=== PATIENT | male | born 1970 | race Caucasian/White ===

== ENCOUNTER 2017-08-06 20:23 | Emergency (ER) | payer OTHER ==
[2017-08-06 20:36] VITALS: BP 155/96
[2017-08-06] MEDS ORDERED: predniSONE 20 MG TABLET PO STA (20:50)
[2017-08-06] MEDS ORDERED: ACYCLOVIR 200 MG CAPSULE PO STA (20:50)
--- NOTE | 2017-08-06 20:53 | ED Physician Documentation ---
History of Present Illness - Stated complaint Stated Complaint: POSS SHINGLES - Chief complaint Chief Complaint: General - History obtained from History obtained from: Patient - History of Present Illness Timing: Other (He had left-sided chest pain a couple of days ago, it was a burning sensation. Over the last 24 hours has developed a rash there and on the back and under the armpit on the left.) Review of Systems Constitutional: denies: Fever, Chills, Myalgias, Fatigue Cardiac: reports: Chest pain / pressure. denies: Palpitations Respiratory: denies: Dyspnea, Cough PD PAST MEDICAL HISTORY - Past Medical History Past Medical History: Yes Respiratory: Sleep apnea GI: GERD - Past Surgical History Past Surgical History: Yes General: Appendectomy, Other Ortho: Knee replacement - Present Medications Home Medications: Ambulatory Orders Medication Instructions Recorded Confirmed Acyclovir 800 mg PO 5XD 10 Days tablet 08/06/17 Esomeprazole Magnesium [Nexium 40 mg PO DAILY PM 08/06/17 08/06/17 24Hr] predniSONE [Deltasone] 20 mg PO [id number] #21 tab 08/06/17 - Allergies Allergies/Adverse Reactions: Allergies Allergy/AdvReac Type Severity Reaction Status Date / Time Phenothiazines Allergy Severe Anaphylaxis Verified 08/06/17 20:35 - Social History Does the pt smoke?: Yes Smoking Status: Current every day smoker Does the pt drink ETOH?: Yes Does the pt have substance abuse?: No PD ED PE NORMAL - Vitals Vital signs reviewed: Yes - General General: Alert and oriented X 3, No acute distress - Derm Derm: Other (He has herpes zoster above the left nipple, a little bit in the axilla, and over the left scapula) - Neuro Neuro: Alert and oriented X 3, Normal speech - Psych Psych: Normal mood, Normal affect Results - Vitals Vitals: Vital Signs - 24 hr 08/06/17 20:32 Temperature 36.4 C L Heart Rate 88 Respiratory 18 Rate Blood Pressure 155/96 H O2 Saturation 100 Oxygen O2 Source Room air Departure - Departure Disposition: 01 Home, Self Care Clinical Impression: Herpes zoster Qualifiers: Herpes zoster complications: without complications Qualified Code(s): B02.9 - Zoster without complications Condition: Good Record reviewed to determine appropriate education?: Yes Instructions: ED Shingles Prescriptions: Acyclovir 800 mg PO 5XD 10 Days tablet predniSONE [Deltasone] 20 mg PO [id number] #21 tab Comments: Your blood pressure was elevated today on check into the emergency department. This does not mean that you have hypertension, it is a common phenomenon to come to the emergency department and have elevated blood pressure. I recommend that you see your primary care physician within the week to have it rechecked when you are feeling better.
== END 2017-08-06 21:02 | disposition home or self-care (01) ==
LOC: ED 20:23
DX: B02.9 Zoster without complications (principal); R03.0 Elevated blood-pressure reading, without diagnosis of hypertension; F17.200 Nicotine dependence, unspecified, uncomplicated; Z96.659 Presence of unspecified artificial knee joint
CPT/HCPCS: 99283; A9270; J7512

== ENCOUNTER 2023-08-30 08:56 | Outpatient (CLI) | payer OTHER ==
--- NOTE | 2023-08-30 10:18 | Sleep Patient Instructions ---
Sleep Center Visit Summary - Patient Visit Information Reason for Visit: Initial consultation - Patient Instructions Additional Instructions: You will continue with CPAP therapy with pressure set at 12-14 cmH2O. A supply prescription will be updated with your DME. I have added an order for your new CPAP. I have also order a new sleep study to verify VIET diagnosis. We encourage you to continue to try to lose weight. Please follow up with the sleep care office one month after getting CPAP and also after sleep study. - Clinic Information Contact: [facility] [address] [place] [address] [email or web address] T: [phone]
--- NOTE | 2023-08-30 10:26 | SLEEP CARE CONSULTATION ---
Information from patient questionnaire entered by Ariana Alvarado. I have reviewed and concur with the information entered by Ariana Alvarado. This document represents the service I personally performed and the decisions made by me, Saida Field ARNP. History of Present Illness Service Date and Time: 08/30/2023 0856 Reason for Visit: New patient, sleep apnea on CPAP therapy Chief Complaint: reports: Unrefreshed sleep, Snoring, Excessive daytime sleepiness, Observed pauses in breathing, Fatigue, Frequent awakenings at night, Other (UPDATE SUPPLIES) Date of Onset: 30+YRS Usual bedtime: 9PM Time it takes to fall asleep: 5-10MINS Snores at night: Yes Observed to quit breathing while asleep: Yes Sleeps alone due to snoring: Yes (BEFORE CPAP) Number of times waking at night: 1-2 Reasons for waking at night: reports: Snoring, Bathroom, Other (UNKNOWN) Toss, Turn, or Twitch while sleeping: Yes Recalls having dreams: Yes Usually gets out of bed at: 6AM Feels refreshed in the morning: No Morning headache: No Sleepy or fatigued during the day: Yes Ever fallen asleep while driving: Yes Takes day naps: No Dreams during day naps: Yes Prior sleep studies: Yes Additional HPI information: ALTHEA AGUILAR was previously diagnosed to have moderate, AHI unknown, obstructive sleep apnea-hypopnea syndrome in 2012 through [facility] as document in chart note on 08/21/2012 and comes in today to establish care for CPAP therapy. He needs a new machine. - Parasomnia Symptoms Ever been unable to move upon waking from sleep: Yes Walks in sleep: No Talks in sleep: Yes Ever acted out dreams in sleep: Yes Ever felt weak in the knees when startled or emotional: Yes Bothered by creepy, crawly, restless sensations in legs: Yes Problems with memory or concentration: Yes CPAP Compliance Data - Data Reviewed with Patient Average duration of nightly device use: 7 hours 23 minutes Compliance rate %: 59 (08/30/2022-08/29/2023; 220-365 days used on old machine) Current pressure setting (cmH2O): 12-14 Average residual AHI: 4.3 Central apnea: 0.2 Obstructive apnea: 1.8 Hypopnea: 1.4 Average large leak: 16.1 Compliance data discussion: He has a ResMed S9 that is giving him an error message that the motor has exceeded its life. He has been using [employer]. He is using a full face mask, ResMed AirFit F30i. 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 He uses this when on the boat and his other one when he is at home for a month to 6 weeks. Subjective Missed days of use due to: reports: travel (for work, using other machine on boat) Patient concerns: reports: aerophagia (with machine at home; not one on boat), dry mouth, nose, throat (dry mouth with one on boat). denies: mask discomfort, air blowing in eyes, mask leak noise, condensation in mask/hose, nasal congestion, epistaxis Observed to snore while using device: No Current pressure setting perceived as: comfortable On therapy, patient: reports: sleeping better, awakening more refreshed, being more awake and alert during the day, more rested overall. denies: drowsiness while driving Initial [place] Sleepiness Scale score: 16 (05/13/23) Past Medical History Past Medical History: reports: Arthritis, GERD, Other (JOINT PAIN (HIP, SHOULDER, KNEE, BACK)) Social History The patient's occupation is a CONTRACTOR. Patient is and lives in . Have you smoked in the past 12 months: Yes Cigarettes per day (20/pack): 20 Years of smokin Smoking Pack Years: 30.0 Alcohol use: Yes Alcohol amount and frequency: 1 DRINK MAYBE ONCE A WEEK Caffeine use: Yes Caffeine amount and frequency: 1-2 CUPS DAILY Family History Family history of sleep disordered breathing: Yes Family Hx Sleep Apnea: Father: Snoring, Sleep apnea - Untreated, Other: Snoring Allergies and Home Medications Known drug allergies: Yes ( LISTED) Drug allergies reviewed: Yes Home medication list reviewed: Yes (as listed) Allergy and home medication list: Allergies Phenothiazines Allergy (Severe, Verified 08/26/23 13:05) Anaphylaxis Medications: Omeprazole 20 mg daily Meloxicam 7.5 mg, 1-2 tabs daily as needed Review of Systems Weight loss over past 5 years: 10 Cardiovascular: reports: high blood pressure (at doctors office), irregular heart rate or pulse Respiratory: reports: wheeze Gastrointestinal: reports: heartburn Urinary: reports: frequency Ear/Nose/Throat: reports: nasal congestion, dry mouth/throat, tonsillectomy, wisdom teeth removed Endocrine: reports: sluggishness, too hot or cold, increased urination Musculoskeletal: reports: joint pain, back pain Immunologic: reports: sneezing Physical Exam Vital signs obtained and entered by: SAIDA OWEN-Bacilio Blood Pressure: 132/92 Cuff size: regular (right arm) Heart Rate: 72 O2 Saturation: 100 Height: 5 ft 10 in Weight: 206 lb 3.2 oz Body Mass Index: 29.5 BMI Classification: Overweight Neck circumference: 16.5 (inches) Heart: regular rate and rhythm Lungs: clear bilaterally Impression and Plan 1. Obstructive Sleep Apnea-Hypopnea Syndrome, moderate, with good treatment compliance and good apnea control. On CPAP therapy, the patient has better sleep quality and is more rested overall. His current machine is a ResMed S9 and is giving him an error message that the motor has exceeded its life expectancy. The patients CPAP is over 5 years old and of reasonable use. Thus, the CPAP will be updated. The new CPAPs also have a better humidity system which could assist control of patients dryness symptoms. A DWO prescription will be made. Compliance guidelines for new device and follow up discussed. We have some notes from his previous sleep provider which shows he does have moderate obstructive sleep apnea but we do not have a copy of his original sleep study. He thinks he may have a copy at home and will try to find it and bring it in to the office. He also has not had a sleep study since before 2010 and I think it would be good to get an updated sleep study for a new baseline. He has lost a little bit of weight also which he does when he is out on the boat. We will follow-up with him after the sleep study and with his new machine, hopefully we can coordinate this. Patient's apnea severity and rationale for treatment to reduce apnea, improve sleep quality and reduce cardiovascular and cerebrovascular events was reviewed. I also reviewed the benefit of consistent device use of CPAP for gastric reflux. 2. Overweight, unspecified. Currently patients BMI is 29.5. Obesity increases the risk of apnea, CPAP pressure requirements and overall health risks especially cardiovascular and diabetes. Thus patient is advised to lose weight. * Continue auto CPAP pressure at 12-14 cmH2O * Update machine * Update supply prescription * PSG to verify diagnosis and severity * Notify me if snoring with mask or feeling that the pressure is too much or too little * Attempt to lose weight * Call this office if any problems using CPAP * Return for follow up one month after obtaining new device and/or after sleep study, or sooner if concerns arise Counseling Topics: Spare mask, Weight loss health impact Prescriptions: Auto CPAP, Device supplies Follow up with Sleep Care in: other (compliance followup) Plan: Verifying PSG Visit Type: In Office Time Spent with Patient (minutes): 52 Provider Statement: I spent 100% of the Face to Face Visit with the patient with greater than 50% spent counseling the patient and coordination of care.
[2023-08-30 10:33] VITALS: BP 132/92; O2SAT 100
== END 2023-08-30 08:57 | disposition home or self-care (01) ==
LOC: SC 08:56
PROVIDERS: ATTEND Nurse Practitioner Family
DX: G47.33 Obstructive sleep apnea (adult) (pediatric) (principal); E66.3 Overweight; Z68.29 Body mass index [BMI] 29.0-29.9, adult; F17.210 Nicotine dependence, cigarettes, uncomplicated
CPT/HCPCS: 99204; 99212

== ENCOUNTER 2023-09-14 19:30 | Outpatient (CLI) | payer OTHER | END 2023-09-14 19:31 | disposition home or self-care (01) | LOC: SC 19:30 | PROVIDERS: ATTEND Nurse Practitioner Family | DX: G47.33 Obstructive sleep apnea (adult) (pediatric) (principal) | CPT/HCPCS: 95810 ==

== ENCOUNTER 2023-09-28 09:15 | Outpatient (CLI) | payer OTHER ==
--- NOTE | 2023-09-28 10:03 | Sleep Patient Instructions ---
Sleep Center Visit Summary - Patient Visit Information Reason for Visit: Follow-up after sleep study to get results - Patient Instructions Additional Instructions: You were here for follow up of sleep study and verified that you have moderate obstructive sleep apnea. You will be continued on CPAP therapy with pressure at 12-14 cmH2O. You should follow up with sleep care in 6 months. You may contact us sooner for any questions or concerns. - Clinic Information Contact: [facility] [address] [place] [address] [email or web address] T: [phone]
--- NOTE | 2023-09-28 10:07 | SLEEP CARE CONSULTATION ---
Information from patient questionnaire entered by Ariana Alvarado. I have reviewed and concur with the information entered by Ariana Alvarado. This document represents the service I personally performed and the decisions made by , Saida Field ARNP. History of Present Illness Service Date and Time: 09/28/2023914 Initial [place] Sleepiness Scale score: 16 (05/13/23) Current [place] Sleepiness Scale score: 16 (09/28/23) Additional HPI information: ALTHEA AGUILAR returns for follow up and results of the recently performed polysomnography. The sleep study showed moderate obstructive sleep apnea with an average AHI of 28.1 and stacy oxygen saturation of 84%. I explained the pathophysiology behind obstructive sleep apnea. We then spent quite a bit of time discussing different treatment options. For mild obstructive sleep apnea, surgery and oral appliance are alternatives to nasal CPAP therapy but in moderate or severe cases, nasal CPAP is the most effective and reliable treatment. I reviewed the impact of weight changes on sleep apnea and strongly recommended losing weight. The patient will be continuing with the nasal CPAP therapy. Nasal autoCPAP is set at 12-14 cmH20. Patient counseled not drink alcohol less than 4 hours before bedtime as it can increase snoring and apnea. Patient was cautioned about risks of drowsy driving until sleepiness symptoms resolve. Patient denies drowsy driving. Sleep Study - Results Type of Sleep Study: Polysomnography (COMPLETED 09/14/23) Prior sleep studies: Yes Polysomnography/Home Sleep Study results: IMPRESSION: The quality of the study is good. The patient had normal sleep efficiency. The sleep architecture was abnormal for sleep fragmentation and reduced amount of time spent in REM and slow wave sleep (N3). Respiratory monitoring showed moderate obstructive sleep apnea-hypopnea (AHI = 28.1) associated with frequent arousals, oxyhemoglobin desaturation and mild hypoxia (stacy oxygen saturation of 84%). The respiratory events occurred only during supine sleep (supine AHI = 33.9; non-supine = 0.00). Snore was light to loud in intensity. There was no significant periodic leg movement of sleep. Cardiac rhythm was normal sinus rhythm without significant arrhythmia. No abnormal behavior (parasomnia) observed during the night. Allergies and Home Medications Known drug allergies: Yes (as listed) Drug allergies reviewed: Yes Home medication list reviewed: Yes (no changes) Allergy and home medication list: Allergies Phenothiazines Allergy (Severe, Verified 08/26/23 13:05) Anaphylaxis Review of Systems Review of systems same as previous: Yes (NO CHANGE) Physical Exam Vital signs obtained and entered by: ARIANA Ribera MA Blood Pressure: 157/90 (RIGHT ARM) Cuff size: regular Heart Rate: 77 O2 Saturation: 100 Height: 5 ft 10 in Weight: 201 lb 12.8 oz Body Mass Index: 28.9 BMI Classification: Overweight Impression and Plan 1. Obstructive Sleep Apnea-Hypopnea Syndrome, moderate, with lowest oxygen saturation of 84%. On CPAP therapy, the patient has better sleep quality and is more rested overall. He will be continued on CPAP therapy with pressure set at 12-14 cmH2O. He received his new machine about 5 days ago and has been using it every night. 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 He is using his new machine compliantly at this point. Patient's apnea severity and rationale for treatment to reduce apnea, improve sleep quality and reduce cardiovascular and cerebrovascular events was reviewed. I also reviewed the benefit of consistent device use of CPAP for gastric reflux. He received his new ResMed Airsense 11. In the last week he has 71% compliance with 7 hours 42 minutes nightly average use. His pressure is set at 12-14 cmH2O' average large leak at 7.7 L/min and residual AHI at 3.6. 2. Hypoxemia, mild, with a stacy oxygen saturation of 84% and 8.8 minutes spent under 90%. The baseline oxygen saturation was normal with an average oxygen saturation of 92%. 3. Overweight, unspecified. Currently patients BMI is 28.9. Obesity increases the risk of apnea, CPAP pressure requirements and overall health risks especially cardiovascular and diabetes. Thus patient is advised to lose weight. * Continue auto CPAP pressure at 12-14 cmH2O * Notify me if snoring with mask or feeling that the pressure is too much or too little * Attempt to lose weight * Call this office if any problems using CPAP * Return for follow up in 3 months, or sooner if concerns arise Counseling Topics: Weight loss health impact Follow up with Sleep Care in: 3 months Visit Type: In Office Time Spent with Patient (minutes): 15 Provider Statement: I spent 100% of the Face to Face Visit with the patient with greater than 50% spent counseling the patient and coordination of care.
[2023-09-28 10:11] VITALS: BP 157/90; O2SAT 100
== END 2023-09-28 09:16 | disposition home or self-care (01) ==
LOC: SC 09:15
PROVIDERS: ATTEND Nurse Practitioner Family
DX: G47.33 Obstructive sleep apnea (adult) (pediatric) (principal); E66.3 Overweight; Z68.28 Body mass index [BMI] 28.0-28.9, adult
CPT/HCPCS: 99212

== ENCOUNTER 2024-01-04 08:24 | Outpatient (CLI) | payer OTHER ==
--- NOTE | 2024-01-04 08:59 | Sleep Patient Instructions ---
Sleep Center Visit Summary - Patient Visit Information Reason for Visit: First compliance follow-up - Patient Instructions Additional Instructions: You were here for follow up of CPAP therapy. You will be continued on CPAP therapy with pressure at 12-13.4 cmH2O. Please let us know if the pressure change is uncomfortable and we can make further adjustments of the pressure. You should follow up with sleep care in 12 months. You may contact us sooner for any questions or concerns. - Clinic Information Contact: [facility] [address] [place] [id number] [email or web address] T: [phone]
--- NOTE | 2024-01-04 09:06 | SLEEP CARE CONSULTATION ---
Information from patient questionnaire entered by Regina Alvarado. I have reviewed and concur with the information entered by Regina Alvarado. This document represents the service I personally performed and the decisions made by , Saida Field ARNP. History of Present Illness Service Date and Time: 01/04/2024823 Previous diagnosis: Moderate, Obstructive Sleep Apnea-Hypopnea Syndrome AHI: 28.1 (on 09/14/23) Reason for follow up: first compliance Equipment type: CPAP (RESMED Airsense 11, S/U 08/2023) Equipment obtained from: [employer] (getting supplies) Mask style: Full face Mask brand: Resmed (AirFit F30i, medium cushion) Backup mask available: Yes Last cushion change: 3 months Prior sleep studies: Yes Type of Sleep Study: Polysomnography HPI additional information: ALTHEA AGUILAR was diagnosed to have moderate, AHI 28.1, obstructive sleep apnea-hypopnea syndrome and returned today for CPAP therapy first compliance follow-up. Sleep Study - Results Type of Sleep Study: Polysomnography Prior sleep studies: Yes CPAP Compliance Data - Data Reviewed with Patient Average duration of nightly device use: 7 HRS 33 MINS Compliance rate %: 73 (09/15/23-10/14/23; initial period) Current pressure setting (cmH2O): 12-14 Average residual AHI: 4.1 Central apnea: 0.1 Obstructive apnea: 1.8 Hypopnea: 2.1 Average large leak: 2.1 L/min Compliance data discussion: In the last 90 days he has used his machine 80 of 90 days with 88% compliance, average residual AHI at 3.6 and 95th percent pressure used at 13.8 cm H2O. Subjective Missed days of use due to: reports: travel Patient concerns: reports: aerophagia, nasal congestion, dry mouth, nose, throat (dry mouth). denies: mask discomfort, air blowing in eyes, mask leak noise, condensation in mask/hose, epistaxis Observed to snore while using device: No Current pressure setting perceived as: comfortable On therapy, patient: reports: sleeping better, awakening more refreshed, being more awake and alert during the day, more rested overall. denies: drowsiness while driving Initial [place] Sleepiness Scale score: 16 (05/13/23) Current [place] Sleepiness Scale score: 12 (01/04/24) Allergies and Home Medications Known drug allergies: Yes (as listed) Drug allergies reviewed: Yes Home medication list reviewed: Yes (no changes) Allergy and home medication list: Allergies Phenothiazines Allergy (Severe, Verified 01/02/24 09:16) Anaphylaxis Review of Systems Review of systems same as previous: Yes (NO CHANGE) Physical Exam Vital signs obtained and entered by: REGINA Ribera MA Blood Pressure: 150/89 (LEFT ARM) Cuff size: regular Heart Rate: 75 O2 Saturation: 100 Height: 5 ft 10 in Weight: 202 lb Body Mass Index: 29.0 BMI Classification: Overweight Impression and Plan 1. Obstructive Sleep Apnea-Hypopnea Syndrome, moderate, with good treatment compliance and good apnea control. On CPAP therapy, the patient has better sleep quality and is more rested overall. He says he has some flatus bloating almost daily when using the CPAP. He states is not extremely uncomfortable but is consistent. To reduce symptoms of aerophagia, the CPAP pressure will be reduced to 12-13.4 cmH2O. Patient advised to contact me if this does not reduce symptoms or if pressure change uncomfortable. He was instructed to advise me if he notices the events average increasing with pressure change. Goal of treatment reviewed. He voiced understanding. Patient's apnea severity and rationale for treatment to reduce apnea, improve sleep quality and reduce cardiovascular and cerebrovascular events was reviewed. I also reviewed the benefit of consistent device use of CPAP for gastric reflux. 2. Overweight, unspecified. Currently patients BMI is 29. Obesity increases the risk of apnea, CPAP pressure requirements and overall health risks especially cardiovascular and diabetes. Thus patient is advised to lose weight. * Change auto CPAP pressure to 12-13.4 cmH2O * Notify me if snoring with mask or feeling that the pressure is too much or too little * Attempt to lose weight * Call this office if any problems using CPAP * Return for follow up in 12 months, or sooner if concerns arise Adjust device pressure to (cmH2O): 12-13.4 Counseling Topics: Spare mask, Weight loss health impact Follow up with Sleep Care in: 1 year Visit Type: In Office Time Spent with Patient (minutes): 23 Provider Statement: I spent 100% of the Face to Face Visit with the patient with greater than 50% spent counseling the patient and coordination of care.
[2024-01-04 09:13] VITALS: BP 150/89; O2SAT 100
== END 2024-01-04 08:25 | disposition home or self-care (01) ==
LOC: SC 08:24
PROVIDERS: ATTEND Nurse Practitioner Family
DX: G47.33 Obstructive sleep apnea (adult) (pediatric) (principal); E66.3 Overweight; Z68.29 Body mass index [BMI] 29.0-29.9, adult
CPT/HCPCS: 99212; 99213